=== PATIENT | female | born 1955 | race Caucasian/White ===

== ENCOUNTER 2020-07-30 10:16 | Emergency (ER) | payer OTHER | END 2020-07-30 14:10 | disposition home or self-care (01) | LOC: FER 10:16 | DX: U07.1 COVID-19 (principal); C50.919 Malignant neoplasm of unspecified site of unspecified female breast; C79.9 Secondary malignant neoplasm of unspecified site; Z79.899 Other long term (current) drug therapy; Z88.1 Allergy status to other antibiotic agents; Z88.5 Allergy status to narcotic agent; Z91.012 Allergy to eggs | CPT/HCPCS: J7050; M0239 ==